=== PATIENT | female | born 1980 | race Caucasian/White ===

== ENCOUNTER 2016-07-12 18:20 | Emergency (ER) | payer SELFPAY ==
[2016-07-12 19:35] LABS: HCG SERUM NEGATIVE (NEGATIVE)
== END 2016-07-12 21:02 | disposition home or self-care (01) ==
LOC: D.ER 18:20
PROVIDERS: Emergency Medicine
DX: S40.012A Contusion of left shoulder, initial encounter (principal); V43.52XA Car driver injured in collision with other type car in traffic accident, initial encounter; Y93.89 Activity, other specified; Y92.410 Unspecified street and highway as the place of occurrence of the external cause; S80.12XA Contusion of left lower leg, initial encounter